=== PATIENT | female | born 1950 | race Caucasian/White ===

== ENCOUNTER 2024-10-05 11:32 | Inpatient (IN) | payer BC, MEDICARE ==
[~2024-10-05] VITALS: Ht 162.6 cm; Wt 46.3 kg
[2024-10-05] MEDS ORDERED: PANTOPRAZOLE 40 MG VIAL ONE (11:50)
[2024-10-05] MEDS: IV NS 0.9% 1,000 ML BAG IV ONE (11:58)
[2024-10-05] MEDS: PANTOPRAZOLE 40 MG VIAL IV ONE (11:58)
[2024-10-05] MEDS: ONDANSETRON HCL/PF 4 MG/2 ML VIAL IV ONE (12:07)
[2024-10-05 12:21] LABS: BASOPHILS % (AUTO) 0.1 % (0.0-2.0); HEMATOCRIT 32 % (33-45); HEMOGLOBIN 10.7 g/dL (11.5-14.8); LYMPHOCYTES # (AUTO) 0.5 K/uL (0.8-4.8); LYMPHOCYTES % (AUTO) 4.7 % (20.0-44.0); MEAN CORPUSCULAR HEMOGLOBIN 29 PG (26.0-33.0); MEAN CORPUSCULAR HGB CONC 34 g/dl (31.0-36.0); MEAN CORPUSCULAR VOLUME 86 fL (82-100); MONOCYTES # (AUTO) 0.3 K/uL (0.1-1.30); MONOCYTES % (AUTO) 3.2 % (2.0-12.0); NEUTROPHILS # (AUTO) 9.9 K/uL (1.8-8.9); PLATELET COUNT (AUTO) 208 K/uL (150-450); RED BLOOD CELL COUNT(AUTO) 3.67 MIL/uL (4.0-5.2); RED CELL DISTRIBUTION WIDTH 15.6 % (11.5-15.0); WHITE BLOOD COUNT (AUTO) 10.7 K/uL (4.3-11.0)
[2024-10-05 12:36] LABS: INR 0.96 (0.91-1.10); PROTHROMBIN TIME 10.2 SECS (9.2-11.1)
[2024-10-05] MEDS: PIPERACILLIN /TAZOBACTAM 3.375 G in IV D5W 50 ML IV ONE (12:40)
[2024-10-05 12:45] LABS: CALCIUM, SERUM 9.2 mg/dL (8.5-10.1); CARBON DIOXIDE 29 mmol/L (21-32); CHLORIDE 104 mmol/L (98-107); CREATININE 1.5 mg/dL (0.6-1.3); GLUCOSE 124 mg/dL (74-106); LACTIC ACID 2.2 mmol/L (0.4-2.0); POTASSIUM 4.5 mmol/L (3.5-5.1); SODIUM SERUM 141 mmol/L (136-145); UREA NITROGEN, BLOOD 36 mg/dL (7-18)
[2024-10-05 12:51] LABS: ALANINE AMINOTRANSFERASE 94 U/L (12-78); ALBUMIN 2.1 g/dL (3.4-5.0); ALKALINE PHOSPHATASE 482 U/L (46-116); ASPARTATE AMINOTRANSFERASE 83 U/L (15-37); BILIRUBIN,DIRECT 0.2 mg/dL (0.0-0.2); BILIRUBIN,TOTAL 0.4 mg/dL (0.2-1.0)
[2024-10-05 13:13] LABS: APPEARANCE,URINE CLOUDY (CLEAR); BILIRUBIN,URINE NEGATIVE (NEGATIVE); BLOOD, URINE NEGATIVE Ery/uL (NEGATIVE); COLOR,URINE YELLOW (YELLOW); KETONES,URINE NEGATIVE (NEGATIVE); LEUKOCYTE ESTERASE ,URINE 3+ (NEGATIVE); NITRITE, URINE NEGATIVE (NEGATIVE); PH,URINE 7.5 (5.0-8.0); PROTEIN,URINE NEGATIVE (NEGATIVE); UGLUCOSE NEGATIVE (NEGATIVE); UROBILINOGEN,URINE 0.2 EU/dL (0.2)
[2024-10-05 13:30] LABS: ADD URINE CULTURE YES; RBC,URINE 0-2 /HPF (0-2)
[2024-10-05 13:32] LABS: BACTERIA,URINE Moderate /HPF (None Seen)
[2024-10-05 13:33] LABS: URINE AMORPHOUS URATE Moderate /HPF (None Seen)
[2024-10-05] MEDS ORDERED: Z GUARD REMEDY 4 OZ OINT TP PRN (15:30)
[2024-10-05] MEDS ORDERED: ACETAMINOPHEN 325 MG TABLET PO PRN (15:30)
[2024-10-05] MEDS ORDERED: ACETAMINOPHEN 650 MG/SUPP.RECT RC PRN (15:30)
[2024-10-05] MEDS ORDERED: ONDANSETRON HCL/PF 4 MG/2 ML VIAL IVP PRN (15:30)
[2024-10-05] MEDS ORDERED: MINERAL OIL 133 ML (PYXIS) 1 EA ENEMA RC ONE (17:30)
[2024-10-05] MEDS: CEFEPIME 2 GM in IV D5W 100 ML IV SCH (18:08)
[2024-10-05] MEDS: VANCOMYCIN HCL 1.25 GM in IV D5W 250 ML IV ONE (18:09)
[2024-10-05 20:00] VITALS: BP 120/68; TEMP 98.1; O2SAT 95
[2024-10-05] MEDS: MINERAL OIL 133 ML (PYXIS) 1 EA ENEMA RC ONE (20:42)
[2024-10-05] MEDS: IV D5/0.45 NACL 1,000 ML IV PRN (21:19)
[2024-10-05] MEDS: PANTOPRAZOLE 40 MG VIAL IV SCH (21:20)
[2024-10-05] MEDS: BISACODYL SUPP (10 MG) 10 MG/SUPP.RECT SUPP.RECT RC SCH (22:29)
[2024-10-06] VITALS: BP 124/77; TEMP 98.4; O2SAT 98
[2024-10-06 04:00] VITALS: BP 131/88; TEMP 98.2; O2SAT 96
[2024-10-06 07:05] LABS: BASOPHILS % (AUTO) 0.1 % (0.0-2.0); EOSINOPHILS % (AUTO) 0.2 % (0.0-6.0); HEMATOCRIT 29 % (33-45); HEMOGLOBIN 9.5 g/dL (11.5-14.8); LYMPHOCYTES % (AUTO) 8.3 % (20.0-44.0); MEAN CORPUSCULAR HEMOGLOBIN 28 PG (26.0-33.0); MEAN CORPUSCULAR HGB CONC 33 g/dl (31.0-36.0); MEAN CORPUSCULAR VOLUME 86 fL (82-100); MONOCYTES # (AUTO) 0.5 K/uL (0.1-1.30); MONOCYTES % (AUTO) 3.9 % (2.0-12.0); NEUTROPHILS # (AUTO) 10.3 K/uL (1.8-8.9); NEUTROPHILS % (AUTO) 87.5 % (43.0-81.0); PLATELET COUNT (AUTO) 216 K/uL (150-450); RED CELL DISTRIBUTION WIDTH 15.9 % (11.5-15.0); WHITE BLOOD COUNT (AUTO) 11.7 K/uL (4.3-11.0)
[2024-10-06 07:22] LABS: CALCIUM, SERUM 9.2 mg/dL (8.5-10.1); CREATININE 1.3 mg/dL (0.6-1.3); POTASSIUM 4.5 mmol/L (3.5-5.1); PROTHROMBIN TIME 10.6 SECS (9.2-11.1)
[2024-10-06 12:00] VITALS: BP 124/86; TEMP 98.6; O2SAT 97
[2024-10-06] MEDS ORDERED: KETAMINE HCL (500MG/10ML) 50 MG/ML VIAL ONE (12:38)
[2024-10-06 15:00] LABS: HEMOGLOBIN 8.9 g/dL (11.5-14.8)
[2024-10-06] MEDS ORDERED: ANESTHESIA TRAY IN PYXIS 1 EA TRAY MC ONE (15:29)
[2024-10-06] MEDS: VANCOMYCIN 750 MG in IV D5W 250 ML IV SCH (16:36)
[2024-10-06 20:00] VITALS: BP 154/83; TEMP 97.3; O2SAT 95
[2024-10-07] VITALS: BP 132/80; TEMP 98.8; O2SAT 95
[2024-10-07 00:08] LABS: HEMOGLOBIN 9.2 g/dL (11.5-14.8)
[2024-10-07 02:07] LABS: HEMOGLOBIN 9.5 g/dL (11.5-14.8)
[2024-10-07 04:00] VITALS: BP 135/80; TEMP 98.3; O2SAT 95
[2024-10-07 07:45] LABS: BASOPHILS % (AUTO) 0.1 % (0.0-2.0); EOSINOPHILS # (AUTO) 0.1 K/uL (0.0-0.7); EOSINOPHILS % (AUTO) 0.7 % (0.0-6.0); HEMATOCRIT 27 % (33-45); HEMOGLOBIN 9.3 g/dL (11.5-14.8); LYMPHOCYTES % (AUTO) 11.2 % (20.0-44.0); MEAN CORPUSCULAR HEMOGLOBIN 29 PG (26.0-33.0); MEAN CORPUSCULAR HGB CONC 34 g/dl (31.0-36.0); MEAN CORPUSCULAR VOLUME 86 fL (82-100); MONOCYTES # (AUTO) 0.6 K/uL (0.1-1.30); MONOCYTES % (AUTO) 6.8 % (2.0-12.0); NEUTROPHILS # (AUTO) 7.4 K/uL (1.8-8.9); NEUTROPHILS % (AUTO) 81.2 % (43.0-81.0); PLATELET COUNT (AUTO) 206 K/uL (150-450); RED BLOOD CELL COUNT(AUTO) 3.18 MIL/uL (4.0-5.2); RED CELL DISTRIBUTION WIDTH 16.2 % (11.5-15.0); WHITE BLOOD COUNT (AUTO) 9.1 K/uL (4.3-11.0)
[2024-10-07 08:00] VITALS: BP 124/81; TEMP 98.6; O2SAT 98
[2024-10-07 08:13] LABS: CREATININE 1.1 mg/dL (0.6-1.3); MAGNESIUM 1.8 mg/dL (1.8-2.4); PHOSPHORUS 2.7 mg/dL (2.5-4.9); POTASSIUM 3.7 mmol/L (3.5-5.1)
[2024-10-07] MEDS ORDERED: LEVO500T90 PO (10:11)
[2024-10-07] MEDS ORDERED: DOCU100C36 PO (10:11)
[2024-10-07] MEDS ORDERED: PANT40TA2 PO ×2 (10:11)
[2024-10-07] MEDS ORDERED: ACET325T53 PO (10:11)
[2024-10-07] MEDS ORDERED: BISA10SU61 RC (10:11)
[2024-10-07] MEDS: DOCUSATE SODIUM 100 MG CAPSULE PO SCH (11:11)
[2024-10-07 16:25] LABS: OCCULT BLOOD STOOL NEGATIVE (NEGATIVE)
[2024-10-07] MEDS ORDERED: CLOTRIMAZOLE 1% 15 GM TUBE TP SCH (17:00)
== END 2024-10-07 14:12 | disposition hospice, home (50) | DRG 871 ==
LOC: ER 11:40 → TELE 15:05 → TELE1 16:08 → TELE-TD 17:33 → TELE1 10-06 11:47 → MEDSG1 10-07 09:34
PROVIDERS: ADMIT Nurse Practitioner Family; ATTEND Nurse Practitioner Family
PROC: 0DB58ZX Excision of Esophagus, Via Natural or Artificial Opening Endoscopic, Diagnostic (ICD-10-PCS; principal; 2024-10-06 12:30)
DX: A41.9 Sepsis, unspecified organism (principal); G93.41 Metabolic encephalopathy; J15.9 Unspecified bacterial pneumonia; J69.0 Pneumonitis due to inhalation of food and vomit; R65.21 Severe sepsis with septic shock; K22.10 Ulcer of esophagus without bleeding; E44.0 Moderate protein-calorie malnutrition; N17.9 Acute kidney failure, unspecified; N39.0 Urinary tract infection, site not specified; Z68.1 Body mass index [BMI] 19.9 or less, adult; R65.20 Severe sepsis without septic shock; D64.9 Anemia, unspecified; E88.09 Other disorders of plasma-protein metabolism, not elsewhere classified; K21.9 Gastro-esophageal reflux disease without esophagitis; K40.90 Unilateral inguinal hernia, without obstruction or gangrene, not specified as recurrent; Z66 Do not resuscitate; E83.9 Disorder of mineral metabolism, unspecified; F03.90 Unspecified dementia, unspecified severity, without behavioral disturbance, psychotic disturbance, mood disturbance, and anxiety; K59.00 Constipation, unspecified; K44.9 Diaphragmatic hernia without obstruction or gangrene; R74.01 Elevation of levels of liver transaminase levels; N18.9 Chronic kidney disease, unspecified; I12.9 Hypertensive chronic kidney disease with stage 1 through stage 4 chronic kidney disease, or unspecified chronic kidney disease; B96.89 Other specified bacterial agents as the cause of diseases classified elsewhere
CPT/HCPCS: 36415; 71045-TC; 76705-TC; 76770-TC; 80048-TC; 80076-TC; 81001; 82272-TC; 82962-TC; 83605-TC; 83735-TC; 84100-TC; 84443-TC; 85025-TC; 85027-TC; 85610-TC; 85730-TC; 86850-TC; 87040-TC; 87081-TC; 87086-TC; 92526; 92611-TC; 97110-TC; 97530-TC; A4223; G0378; J0692; J2405; J2470; J2543; J2704; J3371; J3490; J7030; J7050; J7060